=== PATIENT | male | born 1980 | race Caucasian/White ===

== ENCOUNTER 2017-01-16 02:45 | Emergency (ER) | payer OTHER ==
[~2017-01-16] VITALS: Ht 180.3 cm; Wt 87.6 kg
[~2017-01-16 02:45] MED LIST: AMLO5 PO; CLON.1 PO; FENO134C PO; HYDR-2768 PO; HYDR-3580 PO; LISI20 PO
[2017-01-16 02:54] VITALS: BP 136/96; PULSE 121; RESP 18; TEMP 99.5; O2SAT 96
[2017-01-16 03:43] VITALS: BP 136/96; PULSE 121; RESP 18; TEMP 99.5; O2SAT 96
[2017-01-16] MEDS ORDERED: HYDR25TA5 PO (03:43)
[2017-01-16] MEDS ORDERED: LISI40TA PO (03:43)
[2017-01-16] MEDS ORDERED: oxyCODONE/ACETAMINOPHEN 5 MG/325 MG TAB PO ONE (04:30)
[2017-01-16] MEDS ORDERED: HYDR-3533 PO (05:19)
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
--- NOTE | 2017-01-16 06:14 | RADHPO ---
EXAM DATE/TIME: 01/16/2017 05:44 [facility] COMPARISON: No previous studies available for comparison. INDICATIONS : Right ankle pain from injury tonight. MEDICAL HISTORY : Cardiovascular disease. Hypertension SURGICAL HISTORY : None. ENCOUNTER: Initial ACUITY: 1 day PAIN SCORE: 8/10 LOCATION: Right ankle FINDINGS: 3 views of the right ankle. Bone alignment within normal limits. No evidence of fracture. Ankle mort ise intact. CONCLUSION: No evidence of fracture. Jaylon Johnston MD on January 16, 2017 at 6:11 Board Certified Radiologist. This report was verified electronically.
--- NOTE | 2017-01-16 06:16 | RADHPO ---
EXAM DATE/TIME: 01/16/2017 05:46 [facility] COMPARISON: No previous studies available for comparison. INDICATIONS : Right foot pain from injury tonight. MEDICAL HISTORY : Hypertension. Cerebrovascular disease. SURGICAL HISTORY : None. ENCOUNTER: Initial ACUITY: 1 day PAIN SCORE: 8/10 LOCATION: Right foot FINDINGS: 3 views right foot. Bone alignment within normal limits. No evidence of fracture. CONCLUSION: No evidence of fracture. Jaylon Johnston MD on January 16, 2017 at 6:13 Board Certified Radiologist. This report was verified electronically.
[2017-01-16] MEDS ORDERED: KETOROLAC TROMETHAMINE 60 MG/2 ML (IM) VIAL IM ONE (06:45)
== END 2017-01-16 06:52 | disposition home or self-care (01) ==
LOC: PHED 02:45
DX: M25.571 Pain in right ankle and joints of right foot (principal); E78.00 Pure hypercholesterolemia, unspecified; I10 Essential (primary) hypertension; I25.2 Old myocardial infarction; F17.210 Nicotine dependence, cigarettes, uncomplicated
CPT/HCPCS: 73610; 73630; 96372; 99283; E0113; J1885; L1906

== ENCOUNTER 2017-05-16 15:21 | Emergency (ER) | payer OTHER ==
[~2017-05-16] VITALS: Ht 180.3 cm; Wt 96.1 kg
[~2017-05-16 15:21] MED LIST changes: -AMLO5 PO; -CLON.1 PO; -FENO134C PO; -HYDR-2768 PO; +HYDR-3533 PO; -HYDR-3580 PO; +HYDR25TA5 PO; -LISI20 PO; +LISI40TA PO
[2017-05-16 15:39] VITALS: BP 142/102; PULSE 111; RESP 15; TEMP 98.5; O2SAT 99
[2017-05-16] MEDS ORDERED: MORPHINE SULFATE 4 MG/ML INJ IV PUSH ONE (17:15)
[2017-05-16] MEDS ORDERED: ONDANSETRON HCL 4 MG/2 ML VIAL IV PUSH ONE (17:15)
[2017-05-16 17:22] LABS: AUTOMATED NEUTROPHIL # 5.7 TH/MM3 (1.8-7.7); BASOPHIL # 0.1 TH/MM3 (0-0.2); EOSINOPHIL # 0.2 TH/MM3 (0-0.4); EOSINOPHIL % 1.9 % (0.0-4.0); HEMATOCRIT 46.3 % (39.0-51.0); LYMPH % 26.8 % (9.0-44.0); LYMPHOCYTE # 2.5 TH/MM3 (1.0-4.8); MEAN CELL VOLUME 93.7 FL (80.0-100.0); MEAN CORPUSCULAR HEMOGLOBIN 30.9 PG (27.0-34.0); MEAN CORPUSCULAR HGB CONC 32.9 % (32.0-36.0); MONO % 10.5 % (0.0-8.0); NEUT % 59.8 % (16.0-70.0); PLATELET COUNT 290 TH/MM3 (150-450); RED BLOOD COUNT 4.94 MIL/MM3 (4.50-5.90); RED CELL DISTRIBUTION WIDTH 13.4 % (11.6-17.2); WHITE BLOOD COUNT 9.5 TH/MM3 (4.0-11.0)
[2017-05-16 17:26] LABS: HEMO FLAGS DIFF FINAL
[2017-05-16 17:29] LABS: POTASSIUM 3.4 MEQ/L (3.5-5.1)
[2017-05-16 17:32] LABS: BICARBONATE 27.8 MEQ/L (21.0-32.0)
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
--- NOTE | 2017-05-16 17:58 | RADRPT ---
EXAM DATE/TIME: 05/16/2017 17:13 [facility] COMPARISON: No previous studies available for comparison. INDICATIONS : Right knee swelling. Patient stated he woke up yesterday with right knee swelling; the swelling has continued to worsen throught today. No known injury. MEDICAL HISTORY : None. SURGICAL HISTORY : None. ENCOUNTER: Initial ACUITY: 2 days PAIN SCORE: 8/10 LOCATION: Right anterior knee. FINDINGS: No definite fractures, or dislocations are identified. No definite lytic or sclerotic lesion is seen . The joint spaces are well maintained. Large joint effusion is seen. CONCLUSION: Large joint effusion Efren Hamilton MD on May 16, 2017 at 17:56 Board Certified Radiologist. This report was verified electronically.
[2017-05-16] MEDS ORDERED: MORPHINE SULFATE 8 MG/ML INJ IV PUSH ONE (18:00)
[2017-05-16] MEDS ORDERED: LIDOCAINE HCL 2% 50 ML VIAL ONE (18:03)
[2017-05-16 18:08] VITALS: O2SAT 100
[2017-05-16] MEDS ORDERED: LIDOCAINE HCL 2% 20 ML VIAL INFIL ONE (18:15)
--- NOTE | 2017-05-16 18:48 | PD ---
Physical Exam Narrative Dr. Jovel asked me to perform right knee aspiration for the patient. Data Data Last Documented VS Vital Signs Date Time Temp Pulse Resp B/P Pulse Ox O2 Delivery O2 Flow Rate FiO2 05/16/17 19:08 88 16 135/91 97 Room Air 05/16/17 15:39 98.5 Orders Knee, Complete (4vws) (05/16/17 ) Complete Blood Count With Diff (05/16/17 16:56) Basic Metabolic Panel (Bmp) (05/16/17 16:56) Iv Access Insert/Monitor (05/16/17 16:56) Ecg Monitoring (05/16/17 16:56) Oximetry (05/16/17 16:56) Westergren Sedimentation Rate (05/16/17 16:56) C-Reactive Protein (Crp) (05/16/17 16:56) Ondansetron Inj (Zofran Inj) (05/16/17 17:15) Morphine Inj (Morphine Inj) (05/16/17 18:00) Lidocaine 2% Inj (Xylocaine 2% Inj) (05/16/17 18:03) Synovial Fl Cell Count + Diff (05/16/17 18:14) Synovial Fluid Crystals (05/16/17 18:14) Synovial Fluid Glucose (05/16/17 18:14) Synovial Fluid Total Protein (05/16/17 18:14) Lidocaine 2% Inj (Xylocaine 2% Inj) (05/16/17 18:15) Labs Laboratory Tests Test 05/16/17 05/16/17 17:11 18:18 White Blood Count 9.5 TH/MM3 Red Blood Count 4.94 MIL/MM3 Hemoglobin 15.3 GM/DL Hematocrit 46.3 % Mean Corpuscular Volume 93.7 FL Mean Corpuscular Hemoglobin 30.9 PG Mean Corpuscular Hemoglobin 32.9 % Concent Red Cell Distribution Width 13.4 % Platelet Count 290 TH/MM3 Mean Platelet Volume 7.6 FL Neutrophils (%) (Auto) 59.8 % Lymphocytes (%) (Auto) 26.8 % Monocytes (%) (Auto) 10.5 % Eosinophils (%) (Auto) 1.9 % Basophils (%) (Auto) 1.0 % Neutrophils # (Auto) 5.7 TH/MM3 Lymphocytes # (Auto) 2.5 TH/MM3 Monocytes # (Auto) 1.0 TH/MM3 Eosinophils # (Auto) 0.2 TH/MM3 Basophils # (Auto) 0.1 TH/MM3 CBC Comment DIFF FINAL Differential Comment Erythrocyte Sedimentation Rate 22 mm/hr Sodium Level 139 MEQ/L Potassium Level 3.4 MEQ/L Chloride Level 103 MEQ/L Carbon Dioxide Level 27.8 MEQ/L Anion Gap 8 MEQ/L Blood Urea Nitrogen 10 MG/DL Creatinine 0.87 MG/DL Estimat Glomerular Filtration 98 ML/MIN Rate Random Glucose 107 MG/DL Calcium Level 9.1 MG/DL C-Reactive Protein 6.20 MG/DL Synovial Fluid Color YELLOW Synovial Fluid Appearance CLOUDY Synovial Fluid WBC 8872 /MM3 Synovial Fluid RBC 216 /MM3 Synovial Fluid Neutrophils 97 % Synovial Fluid Lymphocytes 2 % Synovial Fluid Monocytes 1 % Synovial Fluid Crystals POS - URIC ACID MDM Supervised Visit with GERMAINE: No Procedures Procedure Narrative Right knee aspiration: The skin was prepped with Betadine solution. One percent lidocaine local anesthesia. Radial aspiration was performed with #16-gauge needle. 80 cc of yellow clear fluid obtained. Fluid was sent for analysis. Polysporin ointment with dressing applied. Scripts Indomethacin 50 Mg Cap50 Mg PO TID PRN (PAIN SCALE 4 TO 10) #15 CAP Ref 0 Take with food, milk, or antacids to decrease stomach adverse effects. Prov:Delilah Wolfe MD 05/16/17 Fred Penny MD May 16, 2017 18:48
[2017-05-16 19:08] VITALS: BP 135/91; PULSE 88; RESP 16; O2SAT 97
[2017-05-16 19:35] LABS: WBC, SYNOVIAL FLUID 8872 /MM3 (0-200)
--- NOTE | 2017-05-16 19:41 | PD ---
Data Data Last Documented VS Vital Signs Date Time Temp Pulse Resp B/P Pulse Ox O2 Delivery O2 Flow Rate FiO2 05/16/17 19:08 88 16 135/91 97 Room Air 05/16/17 15:39 98.5 Orders Knee, Complete (4vws) (05/16/17 ) Complete Blood Count With Diff (05/16/17 16:56) Basic Metabolic Panel (Bmp) (05/16/17 16:56) Iv Access Insert/Monitor (05/16/17 16:56) Ecg Monitoring (05/16/17 16:56) Oximetry (05/16/17 16:56) Westergren Sedimentation Rate (05/16/17 16:56) C-Reactive Protein (Crp) (05/16/17 16:56) Ondansetron Inj (Zofran Inj) (05/16/17 17:15) Morphine Inj (Morphine Inj) (05/16/17 18:00) Lidocaine 2% Inj (Xylocaine 2% Inj) (05/16/17 18:03) Synovial Fl Cell Count + Diff (05/16/17 18:14) Synovial Fluid Crystals (05/16/17 18:14) Synovial Fluid Glucose (05/16/17 18:14) Synovial Fluid Total Protein (05/16/17 18:14) Lidocaine 2% Inj (Xylocaine 2% Inj) (05/16/17 18:15) Labs Laboratory Tests Test 05/16/17 05/16/17 17:11 18:18 White Blood Count 9.5 TH/MM3 Red Blood Count 4.94 MIL/MM3 Hemoglobin 15.3 GM/DL Hematocrit 46.3 % Mean Corpuscular Volume 93.7 FL Mean Corpuscular Hemoglobin 30.9 PG Mean Corpuscular Hemoglobin 32.9 % Concent Red Cell Distribution Width 13.4 % Platelet Count 290 TH/MM3 Mean Platelet Volume 7.6 FL Neutrophils (%) (Auto) 59.8 % Lymphocytes (%) (Auto) 26.8 % Monocytes (%) (Auto) 10.5 % Eosinophils (%) (Auto) 1.9 % Basophils (%) (Auto) 1.0 % Neutrophils # (Auto) 5.7 TH/MM3 Lymphocytes # (Auto) 2.5 TH/MM3 Monocytes # (Auto) 1.0 TH/MM3 Eosinophils # (Auto) 0.2 TH/MM3 Basophils # (Auto) 0.1 TH/MM3 CBC Comment DIFF FINAL Differential Comment Erythrocyte Sedimentation Rate 22 mm/hr Sodium Level 139 MEQ/L Potassium Level 3.4 MEQ/L Chloride Level 103 MEQ/L Carbon Dioxide Level 27.8 MEQ/L Anion Gap 8 MEQ/L Blood Urea Nitrogen 10 MG/DL Creatinine 0.87 MG/DL Estimat Glomerular Filtration 98 ML/MIN Rate Random Glucose 107 MG/DL Calcium Level 9.1 MG/DL Synovial Fluid Color YELLOW Synovial Fluid Appearance CLOUDY Synovial Fluid WBC 8872 /MM3 Synovial Fluid RBC 216 /MM3 Synovial Fluid Neutrophils 97 % Synovial Fluid Lymphocytes 2 % Synovial Fluid Monocytes 1 % MDM Supervised Visit with GERMAINE: No Narrative Course I took over care of this patient from Dr. Jovel. Synovial fluid was aspirated from the patient's knee demonstrating a white count of 8872 consistent with an inflammatory etiology of his arthritis. Patient has a history of gout. Diagnosis Primary Impression: Inflammatory arthritis Patient Instructions: General Instructions Additional Instruction: If you develop fever, chills, increasing pain, numbness or coolness of your leg return to the emergency room. Rest, ice, [place] wrap and elevate your leg when resting. Take Indocin as needed for pain. Med/Other Pt SpecificInfo: Prescription(s) given Scripts Indomethacin 50 Mg Cap50 Mg PO TID PRN (PAIN SCALE 4 TO 10) #15 CAP Ref 0 Take with food, milk, or antacids to decrease stomach adverse effects. Prov:Delilah Wolfe MD 05/16/17 Disposition: 01 DISCHARGE HOME Condition: Stable Delilah Wolfe MD May 16, 2017 19:41
[2017-05-16] MEDS ORDERED: INDO50CA PO (19:59)
[2017-05-16 20:30] LABS: SYNOVIAL FLUID CRYSTALS POS - URIC ACID
[2017-05-19 23:52] LABS: TOTAL PROTEIN, SYNOVIAL FLUID 5.4 g/dL (1.0-3.0)
== END 2017-05-16 20:13 | disposition home or self-care (01) ==
LOC: PHED 15:21
DX: M13.161 Monoarthritis, not elsewhere classified, right knee (principal); I10 Essential (primary) hypertension; F17.210 Nicotine dependence, cigarettes, uncomplicated
CPT/HCPCS: 20610; 73564; 80048; 82945; 84157; 85025; 85652; 86140; 89051; 89060; 96374; 96375; 99284; J2270; J2405